=== PATIENT | female | born 1960 | race Caucasian/White ===

== ENCOUNTER 2018-05-06 08:46 | Day surgery (SDC) | payer OTHER ==
[~2018-05-06 08:46] MED LIST: PROPOFOL INJ 200 MG/20 ML VIAL IV ONE
[2018-05-06 10:12] VITALS: BP 95/47
--- NOTE | 2018-05-06 13:55 | Operative Report ---
Operative Report DATE OF SURGERY: 05/06/18 Operative Report: The risks, benefits and alternatives of the procedure including the risk of bleeding, perforation requiring surgery are explained to the patient in detail and informed consent is obtained. Patient was taken back to the endoscopy suite and placed in the left, lateral decubital position. Timeout was called. Propofol medication is administered. A rectal examination is done which did not reveal any masses, tears or fissures. An Olympus videoscope was introduced into the patient's rectum. The scope was then carefully advanced all the way to the cecum. Cecum was identified by the usual anatomical landmarks of the ileocecal valve as well as the appendiceal office. Photodocumentation was obtained. The scope was then sequentially pulled back via the various segments of the colon including the ascending colon, hepatic flexure, transverse colon, splenic flexure, descending colon and finally into the rectosigmoid portions of the colon. Retroflexion maneuver is performed. PREOPERATIVE DIAGNOSIS: Personal history of polyps POSTOPERATIVE DIAGNOSIS: Sigmoid colon polyp that was removed via snare polypectomy. Diverticulosis. No evidence of diverticulitis. Internal hemorrhoids. Right sidecolon Inflammation status post biopsy with a lymphocytic , microscopic, collagenous colitis OPERATION: Colonoscopy with snare polypectomy colonoscopy with biopsy SURGEON: LEILANI RANDLE ANESTHESIA: LMAC TISSUE REMOVED OR ALTERED: As noted above. COMPLICATIONS: None. ESTIMATED BLOOD LOSS: None. INTRAOPERATIVE FINDINGS: As noted above. PROCEDURE: Patient tolerated procedure well. No immediate postprocedure comp occasions are noted. Patient discharged in good condition. Discharge date 05/06/2018. Discharge diet: Regular. Discharge activity: Regular. 2-3-week follow-up to discuss findings. Patient is instructed to call the office or proceed to the emergency room should there be any further prescriptions. 3-5-year surveillance colonoscopy.
== END 2018-05-06 10:07 | disposition home or self-care (01) ==
LOC: END 08:46
PROVIDERS: ATTEND Internal Medicine Gastroenterology
DX: K63.5 Polyp of colon (principal); K57.90 Diverticulosis of intestine, part unspecified, without perforation or abscess without bleeding
CPT/HCPCS: 45380; 45385; 88305 ×2; J2704; 811